=== PATIENT | male | born 1965 | race Hispanic/Latino ===

== ENCOUNTER 2024-02-29 05:52 | Day surgery (SDC) | payer OTHER ==
[~2024-02-29] VITALS: Ht 182.9 cm; Wt 102.1 kg
[~2024-02-29 05:52] MED LIST: ACETAMINOPHEN325 MG PO; COZAAR100 MG PO; METFORMIN500 M2 PO; OMEPRAZOLE DR40 MG PO; OZEMPIC2 MG SC; TOPROL XL50 MG PO
[2024-02-29] MEDS ORDERED: SODIUM CHLORIDE 0.9% 1,000 ML IV ONE (06:50)
[2024-02-29] MEDS ORDERED: SIMETHICONE 20 MG/0.3 ML PO ONE (06:54)
[2024-02-29 08:02] VITALS: BP 133/86
[2024-02-29] MEDS ORDERED: STERILE WATER FOR IRRIGATION 1,000 ML BTL IR ONE (11:43)
[2024-02-29] MEDS ORDERED: LIDOCAINE HCL 2% 2ML SDV IV ONE (14:08)
[2024-02-29] MEDS ORDERED: GLYCOPYRROLATE 0.2 MG/ML IV ONE (14:08)
[2024-02-29] MEDS ORDERED: PROPOFOL 200 MG/20 ML VIAL IV ONE (14:08)
== END 2024-02-29 08:11 | disposition home or self-care (01) ==
LOC: ENDO 05:52 → ORM 08:15
PROVIDERS: ATTEND Internal Medicine Gastroenterology
DX: D12.3 Benign neoplasm of transverse colon (principal); K63.5 Polyp of colon; K57.30 Diverticulosis of large intestine without perforation or abscess without bleeding; K64.8 Other hemorrhoids